=== PATIENT | female | born 2005 | race Caucasian/White ===

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

== ENCOUNTER 2024-12-07 15:22 | Emergency (ER) | payer OTHER ==
[~2024-12-07] VITALS: Ht 157.4 cm; Wt 49.9 kg
[2024-12-07] MEDS ORDERED: ANTIFUNGAL113 GM T (15:44)
== END 2024-12-07 15:47 | disposition home or self-care (01) ==
LOC: ED 15:22
DX: B35.3 Tinea pedis (principal)